=== PATIENT | female | born 1995 | race Caucasian/White ===

== ENCOUNTER → 2016-05-14 | Outpatient (CLI) | payer BC ==
[2016-05-14 18:46] LABS: BASOPHILS # (AUTO) 0.05 10*3/UL; BASOPHILS % (AUTO) 0.5 % (0-1); EOSINOPHILS % (AUTO) 2.1 % (0-8); HEMATOCRIT 39.6 % (37.0-47.0); HEMOGLOBIN 13.5 g/dL (12.0-16.0); IMM GRAN % (AUTO) 0.1 % (0-5); IMM GRAN# (AUTO) 0.01 10*3/UL; LYMPHOCYTES # (AUTO) 3.96 10*3/uL; MEAN CORPUSCULAR HEMOGLOBIN 30.3 PG (27-31); MEAN CORPUSCULAR HGB CONC 34.1 g/dL (33-37); MEAN PLATELET VOLUME 8.6 FL (7.4-12.2); MONOCYTES # (AUTO) 0.95 10*3/UL (0.3-0.8); MONOCYTES % (AUTO) 8.9 % (5-15); NEUTROPHILS # (AUTO) 5.52 10*3/UL; NEUTROPHILS % (AUTO) 51.4 % (50-80); RDW COEFFICIENT OF VARIATION 12.8 % (11.5-14.5); RED BLOOD COUNT 4.46 10^6/uL (4.20-5.40); WHITE BLOOD COUNT 10.71 10^3/uL (4.8-10.8)
[2016-05-14 18:47] LABS: ASPARTATE AMINO TRANSFERASE 27 IU/L (8-39); BILIRUBIN,TOTAL 0.5 mg/dL (0.3-1.2); BLOOD UREA NITROGEN 12 mg/dL (7-22); CALCIUM 9.4 mg/dL (8.7-10.7); CHLORIDE 103 meq/L (98-112); CREATININE 0.6 mg/dL (0.50-1.20); EST GLOMERULAR FILTRATION > 60 (>60 ml/min/1.73m(2)); GLUCOSE 87 mg/dL (78-110); POTASSIUM 4.1 meq/L (3.8-5.2); SODIUM 139 meq/L (135-145); TOTAL PROTEIN 8.1 g/dL (6.1-8.0)
[2016-05-14 18:48] LABS: PLATELET MORPHOLOGY COMMENT NORMAL MORPHOLOGY (NORM)
--- NOTE | 2016-05-14 21:52 | DI ---
PA /LATERAL CHEST X-RAY, 05/14/2016 5:58 PM : Clinical History: Chest tightness or pressure. Previous Exam: None at this facility. There is no acute soft tissue or bony abnormality. Heart size is normal. Lungs are clear. Mediastinal structures are normal. There are no pulmonary nodules. Reading: Normal chest x-ray.
--- NOTE | 2016-05-15 00:23 | EKG ---
[address] [address] Measurements Intervals [place] Rate: 69 P: 64 GA: 140 QRS: 67 QRSD: 90 T: 59 QT: 387 QTc: 407 Interpretive Statements SINUS RHYTHM WITH SINUS ARRHYTHMIA No previous ECG available for comparison Electronically Signed On 05-15-16 09:13:25 [facility] by Alejo Mukherjee [id number]
== END ==
LOC: RAD 18:04
PROVIDERS: ATTEND Physician Assistant
DX: R07.89 Other chest pain (principal); I49.9 Cardiac arrhythmia, unspecified; R39.9 Unspecified symptoms and signs involving the genitourinary system
CPT/HCPCS: 36415; 71020; 80053; 84439; 84443; 84484; 85025; 85379; 93005; 93010

== ENCOUNTER → 2016-05-25 | Outpatient (CLI) | payer BC | LOC: MOB LAB 16:15 | PROVIDERS: ATTEND Student in an Organized Health Care Education/Training Program | DX: R00.2 Palpitations (principal); G47.00 Insomnia, unspecified; R53.82 Chronic fatigue, unspecified | CPT/HCPCS: 36415; 82306; 83735 ==

== ENCOUNTER → 2016-05-25 | Outpatient (CLI) | payer BC ==
--- NOTE | 2016-05-29 12:14 | HOLTER ---
[facility] [place] Forty eight hour holter done for palpitations and chest pain. Adequate diary kept. There were [id number] beats recorded with [id number] being normal. There were 16 PVCs and 1 PAC, however, some baseline artifact was recorded as PVCs. The average heart rate was 74 with minimum rate of 51 and maximum sinus rate of 153 recorded at 9:03 PM. There was no VT or SVT. There was chronic ST elevation throughout the tracing which tended to normalize with tachycardia raising question of early repolarization or pericarditis. Frequent symptoms of left chest pain were recorded, aggravated by left arm activity or lying on left side. This occurred with both ST elevation and normalization of ST segments. Palpitations were recorded with both sinus rhythm and isolated PVCs, mostly with sinus rhythm. IMP: Abnormal holter with significant ST elevation which normalized with tachycardia and was associated with left chest pain while lying on left side or with left arm movement. Rare PVCs with palpitations noted with occasional PVCs and sinus rhythm. Rhythm strips suggest possible early repolarization or pericarditis with associated associated chest pain. Electronically Signed On 05-29-16 15:48:56 [facility] by Alejo Mukherjee [id number]
== END ==
LOC: EKG 16:44
PROVIDERS: ATTEND Student in an Organized Health Care Education/Training Program
DX: R00.2 Palpitations (principal)
CPT/HCPCS: 93225; 93226; 93227

== ENCOUNTER → 2016-05-29 | Outpatient (CLI) | payer BC | LOC: LAB 17:08 | PROVIDERS: ATTEND Student in an Organized Health Care Education/Training Program | DX: R07.9 Chest pain, unspecified (principal) | CPT/HCPCS: 36415; 85652; 86140 ==